=== PATIENT | male | born 1995 ===

== ENCOUNTER 2018-01-13 06:41 | Emergency (ER) | payer MEDICAID ==
[2018-01-13 07:34] VITALS: TEMP 98.7; O2SAT 97
--- NOTE | 2018-01-13 07:35 | ED PDOC ---
HPI: Chest Pain Time Seen by Provider: 01/13/18 07:18 Chief Complaint (Provider): Chest pain History Per: Patient History/Exam Limitations: no limitations Onset/Duration Of Symptoms: Days (few), Intermittent Episodes Quality: Sharp Additional Complaint(s): Trent Barber is a 22 year old male, with a past medical history of anxiety, who presents to the emergency department complaining of an intermittent chest pain onset for the past few days associated with shortness of breath and dry throat. Patient describes pain as sharp and nonradiating. Patient states he has been anxious and is worried about his health. He has had poor diet. He denies any fever, chills, cough, palpitations or abdominal pain. No further medical complaints. PMD: None provided. Past Medical History Reviewed: Historical Data, Nursing Documentation, Vital Signs Vital Signs: Last Vital Signs Temp 98.7 F 01/13/18 07:29 Pulse 76 01/13/18 07:29 Resp 20 01/13/18 07:29 BP 115/72 01/13/18 07:29 Pulse Ox 97 01/13/18 07:29 - Medical History PMH: Anxiety - Surgical History Surgical History: No Surg Hx - Family History Family History: States: Unknown Family Hx - Social History Ex-Smoker (has not smoked in the last 12 months): Yes Alcohol: Social Drugs: Denies - Home Medications Home Medications: Ambulatory Orders Medication Instructions Recorded Naproxen [Naprosyn] 500 mg PO Q12H #20 tab 01/13/18 - Allergies Allergies/Adverse Reactions: Allergies Allergy/AdvReac Type Severity Reaction Status Date / Time Unobtainable Allergy Verified 01/13/18 07:19 Review of Systems ROS Statement: Except As Marked, All Systems Reviewed And Found Negative Constitutional: Negative for: Fever, Chills ENT: Positive for: Other (dry throat) Cardiovascular: Positive for: Chest Pain. Negative for: Palpitations Respiratory: Positive for: Shortness of Breath. Negative for: Cough Gastrointestinal: Negative for: Abdominal Pain Physical Exam - Reviewed Nursing Documentation Reviewed: Yes Vital Signs Reviewed: Yes - Physical Exam Appears: Positive for: Non-toxic, No Acute Distress Head Exam: Positive for: ATRAUMATIC, NORMAL INSPECTION, NORMOCEPHALIC Skin: Positive for: Normal Color, Warm, Dry. Negative for: Rash Eye Exam: Positive for: Normal appearance, EOMI, PERRL ENT: Positive for: Normal ENT Inspection Neck: Positive for: Painless ROM Cardiovascular/Chest: Positive for: Regular Rate, Rhythm. Negative for: Murmur Respiratory: Positive for: Normal Breath Sounds. Negative for: Respiratory Distress Gastrointestinal/Abdominal: Positive for: Normal Exam, Soft. Negative for: Tenderness Extremity: Positive for: Normal ROM (upper and lower extremities). Negative for : Deformity, Swelling Neurologic/Psych: Positive for: Alert, Oriented. Negative for: Motor/Sensory Deficits Medical Decision Making Medical Decision Making: Time: 07:18 Initial Plan: --EKG --Chest two views (PA/LAT) [RAD] --reevaluation ----- Scribe Attestation: Documented by Jama Sofia, acting as a scribe for Charlie Nelson MD. Provider Scribe Attestation: All medical record entries made by the Scribe were at my direction and personally dictated by me. I have reviewed the chart and agree that the record accurately reflects my personal performance of the history, physical exam, medical decision making, and the department course for this patient. I have also personally directed, reviewed, and agree with the discharge instructions and disposition. Disposition - Clinical Impression Clinical Impression: Chest wall pain, Anxiety - Patient ED Disposition Is Patient to be Admitted: No Counseled Patient/Family Regarding: Studies Performed, Diagnosis, Need For Followup, Rx Given - Disposition Referrals: [facility] [Outside] Disposition: Routine/Home Disposition Time: 08:16 Condition: FAIR Prescriptions: Naproxen [Naprosyn] 500 mg PO Q12H #20 tab Instructions: Costochondritis, Anxiety, Adult (DC)
[2018-01-13 08:47] VITALS: BP 104/66; PULSE 70; RESP 18
--- NOTE | 2018-01-13 11:53 | RAD ---
Date of service: 01/13/2018 HISTORY: Chest pain COMPARISON: None. TECHNIQUE: Chest PA and lateral FINDINGS: LUNGS: No active pulmonary disease. PLEURA: No significant pleural effusion identified. No pneumothorax apparent. CARDIOVASCULAR: Normal. OSSEOUS STRUCTURES: No significant abnormalities. VISUALIZED UPPER ABDOMEN: Normal. OTHER FINDINGS: None. IMPRESSION: No active disease.
--- NOTE | 2018-01-14 15:25 | CARD ---
APPROVED REPORT Date of service: 01/13/2018 EKG Measurement Heart [id number] <Conclusion> Normal sinus rhythm Normal ECG
== END 2018-01-13 08:44 | disposition home or self-care (01) ==
LOC: H.ER 06:41
DX: R07.89 Other chest pain (principal); F41.9 Anxiety disorder, unspecified

== ENCOUNTER 2018-01-30 20:47 | Emergency (ER) | payer MEDICAID ==
--- NOTE | 2018-01-30 22:34 | ED PDOC ---
HPI: Chest Pain Time Seen by Provider: 01/30/18 21:01 Chief Complaint (Nursing): Chest Pain Chief Complaint (Provider): Central chest pain x 1 month History Per: Patient History/Exam Limitations: no limitations Onset/Duration Of Symptoms: Days Current Symptoms Are (Timing): Still Present Additional Complaint(s): 23 yo male with hx anxiety presents for evaluation of chest pain x 1 month. Pain central, non-radiation. Pt states he also feels very anxious when he leaves his house the last month and than has SOB. Pt states he was seen 2 weeks ago for the same. Pt did not follow-up with PMD or psychiatrist. Past Medical History Reviewed: Historical Data, Nursing Documentation, Vital Signs Vital Signs: Last Vital Signs Temp 98.9 F 01/30/18 20:53 Pulse 71 01/30/18 20:53 Resp 16 01/30/18 20:53 BP 132/81 01/30/18 20:53 Pulse Ox 97 01/30/18 20:53 - Medical History PMH: Anxiety - Surgical History Surgical History: No Surg Hx - Family History Family History: States: Unknown Family Hx - Living Arrangements Living Arrangements: With Family - Social History Current smoker - smoking cessation education provided: No - Immunization History Hx Tetanus Toxoid Vaccination: No - Home Medications Home Medications: Ambulatory Orders Medication Instructions Recorded Naproxen [Naprosyn] 500 mg PO Q12H #20 tab 01/13/18 - Allergies Allergies/Adverse Reactions: Allergies Allergy/AdvReac Type Severity Reaction Status Date / Time Unobtainable Allergy Verified 01/13/18 07:19 Review of Systems ROS Statement: Except As Marked, All Systems Reviewed And Found Negative Constitutional: Negative for: Fever, Chills Cardiovascular: Positive for: Chest Pain Respiratory: Positive for: Shortness of Breath (Not currentlay ) Physical Exam - Reviewed Nursing Documentation Reviewed: Yes Vital Signs Reviewed: Yes - Physical Exam Appears: Positive for: Well, Non-toxic, No Acute Distress Head Exam: Positive for: ATRAUMATIC, NORMAL INSPECTION, NORMOCEPHALIC Skin: Positive for: Normal Color, Warm, DRY Eye Exam: Positive for: Normal appearance ENT: Positive for: Normal ENT Inspection Neck: Positive for: Normal, Painless ROM Cardiovascular/Chest: Positive for: Regular Rate, Rhythm. Negative for: Chest Non Tender ((+) tenderness along the sternal border ) Respiratory: Positive for: CNT, Normal Breath Sounds Gastrointestinal/Abdominal: Positive for: Normal Exam, Soft Back: Positive for: Normal Inspection Extremity: Positive for: Normal ROM Neurologic/Psych: Positive for: Alert, Oriented - ECG O2 Sat by Pulse Oximetry: 97 Medical Decision Making Medical Decision Making: Pt reports feeling better on re-evaluation. EKG and CXR normal. Disposition - Clinical Impression Clinical Impression: Chest wall pain, Anxiety - Patient ED Disposition Is Patient to be Admitted: No Counseled Patient/Family Regarding: Diagnosis, Need For Followup - Disposition Referrals: [facility] [Outside] [facility] [Outside] Disposition: Routine/Home Disposition Time: 22:37 Condition: STABLE Additional Instructions: Please follow-up with PMD. Instructions: Costochondritis, Anxiety, Adult (DC)
[2018-01-30 22:46] VITALS: BP 131/75; PULSE 81; RESP 18; TEMP 98.1; O2SAT 99
--- NOTE | 2018-01-31 08:17 | RAD ---
Date of service: 01/30/2018 HISTORY: chest pain COMPARISON: No prior. TECHNIQUE: Chest PA and lateral FINDINGS: LUNGS: No active pulmonary disease. PLEURA: No significant pleural effusion identified. No pneumothorax apparent. CARDIOVASCULAR: Normal. OSSEOUS STRUCTURES: No significant abnormalities. VISUALIZED UPPER ABDOMEN: Normal. OTHER FINDINGS: None. IMPRESSION: No active disease.
== END 2018-01-30 23:10 | disposition home or self-care (01) ==
LOC: H.ER 20:47
DX: R07.89 Other chest pain (principal); F41.9 Anxiety disorder, unspecified